=== PATIENT | female | born 1975 | race Two or more races ===

== ENCOUNTER 2019-04-07 16:08 | Emergency (ER) | payer MEDICAID, OTHER ==
[~2019-04-07] VITALS: Ht 170.2 cm; Wt 127.0 kg
[2019-04-07] MEDS ORDERED: IBUPROFEN 600 MG TAB PO ONE (16:30)
[2019-04-07 18:41] VITALS: BP 92/56
== END 2019-04-07 18:44 | disposition home or self-care (01) ==
LOC: ER 16:14
DX: S83.91XA Sprain of unspecified site of right knee, initial encounter (principal); K21.9 Gastro-esophageal reflux disease without esophagitis; Z88.1 Allergy status to other antibiotic agents; W01.0XXA Fall on same level from slipping, tripping and stumbling without subsequent striking against object, initial encounter; Y93.89 Activity, other specified; Y92.89 Other specified places as the place of occurrence of the external cause; Y99.8 Other external cause status
CPT/HCPCS: 72100; 73562; 73700